=== PATIENT | male | born 1975 | race African-American/Black ===

== ENCOUNTER 2019-07-03 23:23 | Emergency (ER) | payer MEDICAID ==
[~2019-07-03] VITALS: Ht 188 cm; Wt 150.0 kg
[2019-07-03 23:45] VITALS: BP 158/59
[2019-07-04] MEDS ORDERED: HYDROCODONE/ACETAMINOPHEN 5/325MG TABLET PO ONE (01:00)
== END 2019-07-04 01:19 | disposition home or self-care (01) ==
LOC: ER 23:23
DX: M23.8X1 Other internal derangements of right knee (principal); Z96.659 Presence of unspecified artificial knee joint
CPT/HCPCS: 99282